=== PATIENT | female | born 1940 | race Caucasian/White ===

== ENCOUNTER 2023-06-04 07:44 | Emergency (ER) | payer MEDICARE ==
--- NOTE | 2023-06-04 07:53 | ED ---
General Adult HPI - General Stated complaint: Syncope Time Seen by Provider: 06/04/23 07:44 Source: patient, EMS, RN notes reviewed Mode of arrival: EMS Limitations: no limitations - History of Present Illness Initial comments: 82-year-old female presents emergency department with chief complaint of syncopal episode. Patient states she got up to go to the bathroom was in the ki [place] states that she became very dizzy, lightheaded states that she put her head on the counter and exiting she woke up on the ground. She denies any significant pain. Unclear if she had any trauma to her head. Patient denies any blood thinners she states she was recently hospitalized for some GI issues had some medication changes. Patient denies any fevers, chills, chest pain or current shortness of breath. Patient states she has no dizziness or lightheadedness at rest. States it is more with movement. She denies any back pain, extremity injuries. - Related Data Allergies Allergy/AdvReac Type Severity Reaction Status Date / Time aspirin AdvReac Vomiting Verified 06/04/23 07:51 codeine AdvReac Rash/Hives Verified 06/04/23 07:51 Review of Systems ROS Statement: Those systems with pertinent positive or pertinent negative responses have been documented in the HPI. ROS Other: All systems not noted in ROS Statement are negative. General Exam Limitations: no limitations General appearance: alert, in no apparent distress Head exam: Present: atraumatic, normocephalic, normal inspection Eye exam: Present: normal appearance, PERRL, EOMI. Absent: scleral icterus, conjunctival injection, periorbital swelling ENT exam: Present: normal exam, normal oropharynx, mucous membranes moist Neck exam: Present: normal inspection. Absent: tenderness, meningismus, full ROM (In c-collar), lymphadenopathy Respiratory exam: Present: normal lung sounds bilaterally. Absent: respiratory distress, wheezes, rales, rhonchi, stridor Cardiovascular Exam: Present: regular rate, normal rhythm, normal heart sounds. Absent: systolic murmur, diastolic murmur, rubs, gallop, clicks GI/Abdominal exam: Present: soft, normal bowel sounds. Absent: distended, tenderness, guarding, rebound, rigid Back exam: Present: full ROM. Absent: tenderness Neurological exam: Present: alert, oriented X3, CN II-XII intact, reflexes normal. Absent: motor sensory deficit Course Vital Signs 06/04/23 06/04/23 06/04/23 07:47 08:00 08:02 Temperature 96.8 F L Pulse Rate 93 Pulse Rate [ 90 97 Grit Removal Operator ] Respiratory 18 Rate Blood Pressure 155/76 Blood Pressure 153/69 [Left Arm Sitting] Blood Pressure [Left Arm Standing] Blood Pressure 148/67 [Left Arm Supine] O2 Sat by Pulse 98 Oximetry 06/04/23 06/04/23 06/04/23 08:04 09:02 10:22 Temperature Pulse Rate 89 84 Pulse Rate [ 102 H Grit Removal Operator ] Respiratory 18 16 Rate Blood Pressure 157/65 152/56 Blood Pressure [Left Arm Sitting] Blood Pressure 138/49 [Left Arm Standing] Blood Pressure [Left Arm Supine] O2 Sat by Pulse 96 96 Oximetry EKG Findings - EKG Comments: EKG Findings:: EKG performed at 7: 56 sinus rhythm rate of 80 LA 181 QRS 94 QT/QTc 415/451 - EKG Results: EKG: interpreted by GENE Medical Decision Making - Medical Decision Making Was pt. sent in by a medical professional or institution (, PA, INTENSIVE CARE MEDICINE SPECIALIST, urgent care, hospital, or residential...) When possible be specific @ -No Did you speak to anyone other than the patient for history (EMS, parent, family, police, friend...)? What history was obtained from this source @ -No Did you review nursing and triage notes (agree or disagree)? Why? @ -I reviewed and agree with nursing and triage notes Were old charts reviewed (outside hosp., previous admission, EMS record, old EKG, old radiological studies, urgent care reports/EKG's, residential records)? Report findings @ -No old charts were reviewed Differential Diagnosis (chest pain, altered mental status, abdominal pain women, abdominal pain men, vaginal bleeding, weakness, fever, dyspnea, syncope, headache, dizziness, GI bleed, back pain, seizure, CVA, palpatations, mental health, musculoskeletal)? @ -Differential Syncope: Valvular disease, hypertrophic cardiomyopathy, pulmonary embolism, tamponade, tachycardia, bradycardia, [place], hypovolemia, hemorrhage, dissection, anemia, intracranial hemorrhage, seizure, hypoglycemia, carbon monoxide poisoning, this is not meant to be an all-inclusive list. EKG interpreted by me (3pts min.). @ -Chest x-ray shows no acute cardiopulmonary process. X-rays interpreted by me (1pt min.). @ -None done CT interpreted by me (1pt min.). @ -CT brain, C-spine showing degenerative changes no acute fracture, intr acranial hemorrhage or mass effect. U/S interpreted by me (1pt. min.). @ -None done What testing was considered but not performed or refused? (CT, X-rays, U/S, labs)? Why? @ -None What meds were considered but not given or refused? Why? @ -None Did you discuss the management of the patient with other professionals (professionals i.e. Dr., PA, INTENSIVE CARE MEDICINE SPECIALIST, lab, RT, psych nurse, social insurance specialist, trial lawyer, teacher, classifications officer cc/cm, manager rn case)? Give summary @ -No Was smoking cessation discussed for >3mins.? @ -No Was critical care preformed (if so, how long)? @ -No Were there social determinants of health that impacted care today? How? (Homelessness, low income, unemployed, alcoholism, drug addiction, anne sportation, low edu. Level, literacy, decrease access to med. care, long-term, rehab)? @ -No Was there de-escalation of care discussed even if they declined (Discuss DNR or withdrawal of care, Hospice)? DNR status @ -No What co-morbidities impacted this encounter? (DM, HTN, Smoking, COPD, CAD, Cancer, CVA, ARF, Chemo, Hep., AIDS, mental health diagnosis, sleep apnea, morbid obesity)? @ -Hypertension, malnourished Was patient admitted / discharged? Hospital course, mention meds given and route, prescriptions, significant lab abnormalities, going to OR and other pertinent info. @ -Discharge patient with full work including labs, orthostatics, CT, x-ray with no acute findings. Patient family states that she does not have any interest in eating, exercise or rehab. They are advised to follow-up with PCP regarding further help and return for any worsening change in symptoms. Undiagnosed new problem with uncertain prognosis? @ -No Drug Therapy requiring intensive monitoring for toxicity (Heparin, Nitro, Insulin, Cardizem)? @ -No Were any procedures done? @ -No Diagnosis/symptom? @ -Syncope Acute, or Chronic, or Acute on Chronic? @ -Acute Uncomplicated (without systemic symptoms) or Complicated (systemic symptoms)? @ -Uncomplicated Side effects of treatment? @ -No Exacerbation, Progression, or Severe Exacerbation? @ -No Poses a threat to life or bodily function? How? (Chest pain, [place], [place], pneumonia, PE, COPD, DKA, ARF, appy, cholecystitis, CVA, Diverticulitis, Homicidal, Suicidal, threat to staff... and all critical care pts) @ -No - Lab Data Result diagrams: 06/04/23 08:06 06/04/23 08:06 Lab Results 06/04/23 06/04/23 06/04/23 Range/Units 08:06 08:06 08:06 WBC 6.3 (3.8-10.6) k/uL RBC 4.55 (3.80-5.40) m/uL Hgb 12.2 (11.4-16.0) gm/dL Hct 37.9 (34.0-46.0) % MCV 83.3 (80.0-100.0) fL MCH 26.7 (25.0-35.0) pg MCHC 32.1 (31.0-37.0) g/dL RDW 18.2 H (11.5-15.5) % Plt Count 136 L (150-450) k/uL MPV 8.6 Neutrophils % 70 % Lymphocytes % 12 % Monocytes % 13 % Eosinophils % 1 % Basophils % 1 % Neutrophils # 4.5 (1.3-7.7) k/uL Lymphocytes # 0.8 L (1.0-4.8) k/uL Monocytes # 0.8 (0-1.0) k/uL Eosinophils # 0.0 (0-0.7) k/uL Basophils # 0.0 (0-0.2) k/uL Anisocytosis Slight PT 11.5 (10.0-12.5) sec INR 1.1 (<1.2) APTT 23.4 (22.0-30.0) sec Sodium (137-145) mmol/L Potassium (3.5-5.1) mmol/L Chloride (98-107) mmol/L Carbon Dioxide (22-30) mmol/L Anion Gap mmol/L BUN (7-17) mg/dL Creatinine (0.52-1.04) mg/dL Est GFR (CKD-EPI)AfAm (>60 ml/min/1.73 sqM) Est GFR (CKD-EPI)NonAf (>60 ml/min/1.73 sqM) Glucose (74-99) mg/dL Calcium (8.4-10.2) mg/dL Magnesium (1.6-2.3) mg/dL Total Bilirubin (0.2-1.3) mg/dL AST (14-36) U/L ALT (4-34) U/L Alkaline Phosphatase (38-126) U/L Troponin I (0.000-0.034) ng/mL Total Protein (6.3-8.2) g/dL Albumin (3.5-5.0) g/dL Urine Color Yellow Urine Appearance Cloudy H (Clear) Urine pH 5.5 (5.0-8.0) Ur Specific Renick 1.018 (1.001-1.035) Urine Protein 1+ H (Negative) Urine Glucose (UA) Negative (Negative) Urine Ketones Trace H (Negative) Urine Blood Small H (Negative) Urine Nitrite Negative (Negative) Urine Bilirubin Negative (Negative) Urine Urobilinogen 3.0 (<2.0) mg/dL Ur Leukocyte Esterase Negative (Negative) Urine RBC 3 (0-5) /hpf Urine WBC 6 H (0-5) /hpf Ur Squamous Epith Cells 2 (0-4) /hpf Urine Bacteria Rare H (None) /hpf Hyaline Casts 14 H (0-2) /lpf Urine Mucus Many H (None) /hpf 06/04/23 06/04/23 Range/Units 08:06 08:06 WBC (3.8-10.6) k/uL RBC (3.80-5.40) m/uL Hgb (11.4-16.0) gm/dL Hct (34.0-46.0) % MCV (80.0-100.0) fL MCH (25.0-35.0) pg MCHC (31.0-37.0) g/dL RDW (11.5-15.5) % Plt Count (150-450) k/uL MPV Neutrophils % % Lymphocytes % % Monocytes % % Eosinophils % % Basophils % % Neutrophils # (1.3-7.7) k/uL Lymphocytes # (1.0-4.8) k/uL Monocytes # (0-1.0) k/uL Eosinophils # (0-0.7) k/uL Basophils # (0-0.2) k/uL Anisocytosis PT (10.0-12.5) sec INR (<1.2) APTT (22.0-30.0) sec Sodium 137 (137-145) mmol/L Potassium 3.1 L (3.5-5.1) mmol/L Chloride 104 (98-107) mmol/L Carbon Dioxide 26 (22-30) mmol/L Anion Gap 7 mmol/L BUN 10 (7-17) mg/dL Creatinine 0.45 L (0.52-1.04) mg/dL Est GFR (CKD-EPI)AfAm >90 (>60 ml/min/1.73 sqM) Est GFR (CKD-EPI)NonAf >90 (>60 ml/min/1.73 sqM) Glucose 118 H (74-99) mg/dL Calcium 7.9 L (8.4-10.2) mg/dL Magnesium 1.6 (1.6-2.3) mg/dL Total Bilirubin 1.5 H (0.2-1.3) mg/dL AST 35 (14-36) U/L ALT 20 (4-34) U/L Alkaline Phosphatase 97 (38-126) U/L Troponin I 0.022 (0.000-0.034) ng/mL Total Protein 5.8 L (6.3-8.2) g/dL Albumin 3.1 L (3.5-5.0) g/dL Urine Color Urine Appearance (Clear) Urine pH (5.0-8.0) Ur Specific Renick (1.001-1.035) Urine Protein (Negative) Urine Glucose (UA) (Negative) Urine Ketones (Negative) Urine Blood (Negative) Urine Nitrite (Negative) Urine Bilirubin (Negative) Urine Urobilinogen (<2.0) mg/dL Ur Leukocyte Esterase (Negative) Urine RBC (0-5) /hpf Urine WBC (0-5) /hpf Ur Squamous Epith Cells (0-4) /hpf Urine Bacteria (None) /hpf Hyaline Casts (0-2) /lpf Urine Mucus (None) /hpf Disposition Clinical Impression: Syncope, Hypokalemia Disposition: HOME SELF-CARE Condition: Stable Instructions (If sedation given, give patient instructions): Syncope (ED) Additional Instructions: Please return to the Emergency Department if symptoms worsen or any other concerns. Is patient prescribed a controlled substance at d/c from ED?: No Referrals: Nonstaff,Physician [Primary Care Provider] - 1-2 days Time of Disposition: 11:20
[2023-06-04 08:17] LABS: Anisocytosis Slight; Basophils % (A) 1 %; Eosinophils % (A) 1 %; HCT 37.9 % (34.0-46.0); HGB 12.2 gm/dL (11.4-16.0); Lymphocytes # (A) 0.8 k/uL (1.0-4.8); Lymphocytes % (A) 12 %; MCH 26.7 pg (25.0-35.0); MCHC 32.1 g/dL (31.0-37.0); MCV 83.3 fL (80.0-100.0); Mean Platelet Volume 8.6; Monocytes # (A) 0.8 k/uL (0-1.0); Monocytes % (A) 13 %; Neutrophils # (A) 4.5 k/uL (1.3-7.7); Neutrophils % (A) 70 %; Platelet Count 136 k/uL (150-450); RBC 4.55 m/uL (3.80-5.40); RDW 18.2 % (11.5-15.5); WBC 6.3 k/uL (3.8-10.6)
[2023-06-04] MEDS: SODIUM CHLORIDE 0.9% 1,000 ML IV STA (08:24)
[2023-06-04] MEDS: MECLIZINE 12.5 MG TAB PO STA (08:25)
--- NOTE | 2023-06-04 08:41 | CT ---
EXAMINATION TYPE: CT brain ayse vela con DATE OF EXAM: 06/04/2023 COMPARISON: None HISTORY: Trauma/syncope CT DLP: 1254.[address] of the brain was performed. The ventricles, basal cisterns and sulci overlying the cerebral convexities demonstrate mild enlargem ent. There is no evidence for intracranial hemorrhage or sulcal effacement. There is decreased attenuatio n about the periventricular white matter and deep white matter of both cerebral hemispheres, compatib le with chronic small vessel ischemia. No mass effects are seen. If symptoms persist consider MRI. Osseous calvarium is intact. IMPRESSION: 1. Age related atrophic and chronic small vessel ischemic change without acute intracranial process seen at this time. CT Cervical Spine: Unenhanced CT of the cervical spine was performed with bone and soft tissue window settings submitted . Coronal and sagittal reconstruction is obtained. There is normal alignment and prevertebral soft tissues. No evidence for acute cervical fracture . Scattered degenerative disc disease and spondylosis. Biapical scarring. Moderate bilateral pleural effusions. IMPRESSION: 1. No evidence for acute fracture or subluxation of the cervical spine.
--- NOTE | 2023-06-04 08:56 | XR ---
EXAMINATION TYPE: XR chest 2V DATE OF EXAM: 06/04/2023 COMPARISON: NONE HISTORY: Shortness of breath TECHNIQUE: Frontal and lateral views of the chest are obtained. FINDINGS: Scattered senescent parenchymal changes noted. Hyperinflation compatible with COPD. No evidence for infiltrate. No evidence for atelectasis. Heart size is stable. Small bilateral pleural effusions noted. Mediastinal structures are stable and grossly unremarkable. No evidence for hilar prominence. Degenerative changes dorsal spine. IMPRESSION: 1. Small bilateral pleural effusions noted. 2. COPD
[2023-06-04 09:03] LABS: ALT 20 U/L (4-34); AST 35 U/L (14-36); African American GFR (CKD) >90 (>60 ml/min/1.73 sqM); Albumin 3.1 g/dL (3.5-5.0); Alkaline Phosphatase 97 U/L (38-126); Anion Gap 7 mmol/L; Blood Urea Nitrogen 10 mg/dL (7-17); Calcium 7.9 mg/dL (8.4-10.2); Carbon Dioxide 26 mmol/L (22-30); Chloride 104 mmol/L (98-107); Glucose 118 mg/dL (74-99); INR 1.1 (<1.2); Magnesium 1.6 mg/dL (1.6-2.3); Non-African American GFR(CKD) >90 (>60 ml/min/1.73 sqM); Partial Thromboplastin Time 23.4 sec (22.0-30.0); Potassium 3.1 mmol/L (3.5-5.1); Prothrombin Time 11.5 sec (10.0-12.5); Sodium 137 mmol/L (137-145); Total Bilirubin 1.5 mg/dL (0.2-1.3); Total Protein 5.8 g/dL (6.3-8.2)
[2023-06-04] MEDS: POTASSIUM BICARBONATE/CIT AC 20 MEQ TABLET.EFF PO ONE (10:23)
[2023-06-04 11:05] LABS: Appearance,Urine Cloudy (Clear); Bacteria,Urine Rare /hpf; Bilirubin,Urine Negative (Negative); Blood,Urine Small (Negative); Color,Urine Yellow; Glucose,Urine (UA) Negative (Negative); Hyaline Casts,Urine 14 /lpf (0-2); Ketones,Urine Trace (Negative); Leukocyte Esterase,Urine Negative (Negative); Mucus,Urine Many /hpf; Nitrite,Urine Negative (Negative); PH, Urine 5.5 (5.0-8.0); Protein,Urine 1+ (Negative); RBC,Urine 3 /hpf (0-5); Specific Gravity,Urine 1.018 (1.001-1.035); Squamous Epithelial Cell,Urine 2 /hpf (0-4); WBC,Urine 6 /hpf (0-5)
[2023-06-04 12:10] VITALS: BP 163/62; PULSE 91; RESP 18; TEMP 97.7
== END 2023-06-04 11:46 | disposition home or self-care (01) ==
LOC: EC 07:44 → SUPCPDRO 07:44 → EC 11:46
DX: E87.6 Hypokalemia (principal); R55 Syncope and collapse; I10 Essential (primary) hypertension; E46 Unspecified protein-calorie malnutrition; Z88.5 Allergy status to narcotic agent; Z88.6 Allergy status to analgesic agent
CPT/HCPCS: 36415; 70450; 71046; 72125; 80053; 81001; 83735; 84484; 85025; 85610; 85730; 93005; 96360; 99285